=== PATIENT | male | born 1965 | race Caucasian/White ===

== ENCOUNTER 2021-02-05 09:21 | Day surgery (SDC) | payer MEDICAID ==
[~2021-02-05 09:21] MED LIST: Lactated Ringers 1,000 ML IV SCH
--- NOTE | 2021-02-05 10:58 | PCM.PREANE ---
Preanesthetic Assessment - Procedure Proposed Procedure: EGD, Colonoscopy - Anesthesia/Transfusion/Family Hx Anesthesia History: Prior Anesthesia Without Reaction Family History of Anesthesia Reaction: No Transfusion History: Prior Transfusion Without Reaction - Review of Systems General: No Symptoms Pulmonary: No Symptoms Cardiovascular: No Symptoms Gastrointestinal: No Symptoms (GERD well controlled) Neurological: No Symptoms Other: Reports: None, Liver Problems (H/O Hep B & C - nothing chronic) - Physical Assessment NPO Status Date: 02/03/21 NPO Status Time: 23:30 (Solids, >8 Hr Liq) Vital Signs: Last Vital Signs Temp 97.2 F 02/05/21 10:33 Pulse 78 02/05/21 10:33 Resp 16 02/05/21 10:33 BP 146/78 H 02/05/21 10:33 Pulse Ox 98 02/05/21 10:33 Height: 5 ft 3 in Weight: 70.307 kg ASA Class: 2 Mental Status: Alert & Oriented x3 Airway Class: Mallampati = 2 Dentition: Reports: Normal Dentition Thyro-Mental Finger Breadths: 3 Mouth Opening Finger Breadths: 3 ROM/Head Extension: Full Lungs: Clear to Auscultation, Normal Respiratory Effort Cardiovascular: Regular Rate, Regular Rhythm - Lab Values: Laboratory Last Values SARS-CoV-2 RNA ([facility]) NEGATIVE (NEGATIVE) 02/05/21 09:10 - Allergies Allergies/Adverse Reactions: Allergies Allergy/AdvReac Type Severity Reaction Status Date / Time No Known Allergies Allergy Verified 02/02/21 13:41 - Acknowledgements Anesthesia Type Planned: General Anesthesia Pt an Appropriate Candidate for the Planned Anesthesia: Yes Alternatives and Risks of Anesthesia Discussed w Pt/Guardian: Yes Pt/Guardian Understands and Agrees with Anesthesia Plan: Yes PreAnesthesia Questionnaire - Past Health History Medical/Surgical History: Denies Medical/Surgical History HEENT History: Reports: Allergic Rhinitis, Other (See Below) Other HEENT History: reading glasses Cardiovascular History: Reports: None Respiratory History: Reports: Other (See Below) Other Respiratory History: had a bout of bronchitis and was prescribed an inhaler, denies any lung problems, states gets bronchitis approx every other year Gastrointestinal History: Reports: Colon Polyp, GERD, GI Bleed, Hepatitis Other Gastrointestinal History: hx hepatitis B & C, states has been treated Genitourinary History: Reports: None Musculoskeletal History: Reports: Fracture Other Musculoskeletal History: fx arm as a child Neurological History: Reports: None Psychiatric History: Reports: Anxiety, Depression Endocrine/Metabolic History: Reports: None Hematologic History: Reports: Blood Transfusion(s) Other Hematologic History: had blood transfusion due to bleeding ulcer Immunologic History: Reports: None Oncologic (Cancer) History: Reports: Other (See Below) Other Oncologic History: skin cancer removed from leg, Dermatologic History: Reports: Eczema - Past Surgical History Head Surgeries/Procedures: Reports: None HEENT Surgical History: Reports: Adenoidectomy, Tonsillectomy Cardiovascular Surgical History: Reports: None Respiratory Surgical History: Reports: None GI Surgical History: Reports: Cholecystectomy, Colonoscopy, EGD Male Surgical History: Reports: None Endocrine Surgical History: Reports: None Neurological Surgical History: Reports: None Musculoskeletal Surgical History: Reports: None Oncologic Surgical History: Reports: None Dermatological Surgical History: Reports: None - SUBSTANCE USE Tobacco Use Status *Q: Never Tobacco User Recreational Drug Type: Reports: Methamphetamine (last use "about 3 months ago") - HOME MEDS Home Medications: Home Meds Omeprazole 20 mg PO DAILY 08/02/17 [History] Venlafaxine HCl [Venlafaxine ER] 150 mg PO DAILY 08/02/17 [History] Albuterol [Ventolin HFA] 1 - 2 puff INH ASDIRECTED PRN 02/02/21 [History] Ascorbic Acid [Vitamin C] 1,000 mg PO DAILY 02/02/21 [History] Betamethasone Dipropionate [Diprosone 0.05% Oint] 1 applic TOP ASDIRECTED PRN 02/02/21 [History] Cetirizine [ZyrTEC] 10 mg PO DAILY PRN 02/02/21 [History] Cholecalciferol (Vitamin D3) [Vitamin D3] 5,000 units PO DAILY 02/02/21 [History] Cyanocobalamin (Vitamin B12) [Vitamin B12] 500 mcg PO DAILY 02/02/21 [History] Fluticasone Propionate [Flonase Allergy Relief] 1 spray NASBOTH DAILY 02/02/21 [History] Multivitamin 1 tab PO DAILY 02/02/21 [History] Potassium Gluconate 99 mg PO DAILY 02/02/21 [History] Testosterone Cypionate 0.25 ml IM WEEKLY 02/02/21 [History] - CURRENT (IN HOUSE) MEDS Current Meds: Current Medications Lactated Ringer's (Ringers, Lactated) 1,000 mls @ 125 mls/hr IV ASDIRECTED [facility] Last Admin: 02/05/21 10:37 Dose: 125 mls/hr Documented by:
[2021-02-05] MEDS ORDERED: Propofol 200 MG/20 ML SDV ONE (11:02)
[2021-02-05] MEDS ORDERED: Lidocaine 2% 5 ML SDV ONE (11:02)
[2021-02-05] MEDS ORDERED: fentaNYL 100 MCG/2 ML SDV ONE (11:02)
--- NOTE | 2021-02-05 12:23 | PCM.POSTAN ---
POST ANESTHESIA ASSESSMENT - MENTAL STATUS Mental Status: Somnolent - VITAL SIGNS Vital Signs: Last Vital Signs Temp 97.2 F 02/05/21 10:33 Pulse 78 02/05/21 10:33 Resp 16 02/05/21 10:33 BP 146/78 H 02/05/21 10:33 Pulse Ox 98 02/05/21 10:33 - RESPIRATORY Respiratory Status: Respiratory Rate WNL, Airway Patent, O2 Saturation Stable, Supplemental Oxygen - CARDIOVASCULAR CV Status: Pulse Rate WNL, Blood Pressure Stable - GASTROINTESTINAL GI Status: No Symptoms - PAIN Free Text/Narrative:: Resting comfortably - POST OP HYDRATION Hydration Status: Adequate & Stable
--- NOTE | 2021-02-05 12:24 | PCM.OPNOTE ---
- General Post-Op/Procedure Note Date of Surgery/Procedure: 02/05/21 Operative Procedure(s): Esophagogastroduodenoscopy with gastric and esophageal biopsies. Colonoscopy. Pre Op Diagnosis: Chronic gastroesophageal reflux disease. History of gastric ulcers. History of hepatitis. Personal history of colon polyps. Family history of colon cancer in his father. Post-Op Diagnosis: Mild chronic gastritis and esophagitis. Minimal sigmoid diverticulosis. No colonic polyps or neoplasm. Anesthesia Technique: MAC (ASA II) Primary Surgeon: Issac Rudolph Learning And Development Associate: Yuriy Galeana Condition: Good Free Text/Narrative:: DICTATION [id number] CPT CODE [id number]
[2021-02-05] MEDS ORDERED: Lactated Ringers 1,000 ML IV SCH (12:30)
--- NOTE | 2021-02-05 12:31 | PCM48HPAN ---
Post Anesthesia Note - EVALUATION WITHIN 48HRS OF ANESTHETIC Vital Signs in Normal Range: Yes Patient Participated in Evaluation: Yes Respiratory Function Stable: Yes Airway Patent: Yes Cardiovascular Function Stable: Yes Hydration Status Stable: Yes Pain Control Satisfactory: Yes Nausea and Vomiting Control Satisfactory: Yes Mental Status Recovered: Yes Vital Signs: Last Vital Signs Temp 97.7 F 02/05/21 12:18 Pulse 82 02/05/21 12:29 Resp 9 L 02/05/21 12:29 BP 105/54 L 02/05/21 12:29 Pulse Ox 95 02/05/21 12:29 - COMMENTS/OBSERVATIONS Free Text/Narrative:: Pt doing well post-op. VSS. No apparent anesthetic complications. Dr. Mauricio Young
--- NOTE | 2021-02-05 12:38 | OR ---
SURGEON: Issac Rudolph M.D. DATE OF PROCEDURE: 02/05/2021 OPERATION PERFORMED: Esophagogastroduodenoscopy with biopsy. PRIMARY SURGEON: Issac Rudolph M.D. HOME HEALTH NURSE LICENSED PRACTICAL: Feather Edger: KRIS Hensley student. ANESTHESIA: MAC. ASA CLASSIFICATION: II. PREOPERATIVE DIAGNOSIS: Chronic gastroesophageal reflux disease with progressive heartburn. POSTOPERATIVE DIAGNOSES: 1. Mild chronic gastritis. 2. Esophagitis. DESCRIPTION OF PROCEDURE: The patient was taken to the endoscopy room and positioned on the endoscopy table in the left lateral decubitus position. Time-out was called for appropriate identification of the patient and procedure. Monitored anesthesia care was provided. The bite block was placed between the patient's teeth. The gastroscope was inserted through the bite block into the oropharynx and advanced without difficulty through the esophagus and stomach into the duodenum where examination was now carried out in a retrograde fashion. The duodenum showed no acute inflammatory changes or ulcerations. The gastroscope was withdrawn into the stomach that did show mild gastritis. Antral biopsies were obtained to look for the presence of Helicobacter pylori. The gastroscope was then retroflexed to visualize the proximal stomach from below. No significant hiatal hernia was noted. No polyps were encountered. The gastroscope was then straightened and slowly withdrawn. The greater and lesser curvatures were very well visualized. Again, no tumors, polyps, or ulcerations were noted. The GE junction was well defined, although he did have mild esophagitis and separate biopsies of the distal esophagus at 34 cm were obtained. It should also be noted that the antrum was biopsied to look for the presence of Helicobacter pylori. The esophagus itself demonstrated good contractility. No mid or proximal lesions were identified. The vocal cords were briefly visualized as the scope was withdrawn and noted to move symmetrically. The gastroscope was then removed with the patient having tolerated this portion of the procedure well. Following colonoscopy, he was taken to recovery room in stable condition. JEREMY / LESLEY /[id number]
--- NOTE | 2021-02-05 13:35 | OR ---
SURGEON: Issac Rudolph M.D. DATE OF PROCEDURE: 02/05/2021 OPERATION PERFORMED: Colonoscopy. PRIMARY SURGEON: Issac Rudolph M.D. BLAST FURNACE CHECKER: Custodian: KRIS Hensley student. ANESTHESIA: MAC. ASA CLASSIFICATION: II. PREOPERATIVE DIAGNOSES: 1. Personal history of colon polyps. 2. Family history of colon cancer. POSTOPERATIVE DIAGNOSIS: Minimal sigmoid diverticulosis. DESCRIPTION OF PROCEDURE: With the patient having completed upper GI endoscopy, he was maintained in the left lateral decubitus position. The colonoscope was inserted into the rectum and advanced with minimal difficulty to the cecum. The cecum was identified by internal landmarks and external pressure. The colonoscope was retroflexed to visualize the ascending colon from below, then straightened, and slowly withdrawn. The cecum, ascending colon, hepatic flexure, transverse colon, splenic flexure, and descending colon showed no tumors, polyps, diverticula, or angiodysplasia. There was no evidence of inflammatory bowel disease. A few scattered diverticula were noted in the sigmoid colon. No stricture, spasm, or bleeding was noted, and no polyps were encountered. The colonoscope was withdrawn to the rectum and retroflexed to visualize the anal orifice from above. No tumors or polyps were seen. There were no acute hemorrhoidal changes. The colonoscope was then straightened, the rectum aspirated, and the colonoscope removed. Patient tolerated the procedure well and was taken to recovery room in stable condition. JEREMY / LESLEY /[id number]
== END 2021-02-05 13:07 | disposition home or self-care (01) ==
LOC: MW.SDS 09:21
PROVIDERS: ATTEND Surgery
DX: Z12.11 Encounter for screening for malignant neoplasm of colon (principal); K21.00 Gastro-esophageal reflux disease with esophagitis, without bleeding; K29.50 Unspecified chronic gastritis without bleeding; K57.30 Diverticulosis of large intestine without perforation or abscess without bleeding; Z80.0 Family history of malignant neoplasm of digestive organs; Z86.010 Personal history of colon polyps; N39.0 Urinary tract infection, site not specified; Z98.890 Other specified postprocedural states; Z01.812 Encounter for preprocedural laboratory examination; Z20.822 Contact with and (suspected) exposure to COVID-19
CPT/HCPCS: 43239; 45378; 87635; J2704; J3010; J7120; 00813; U0002

== ENCOUNTER 2023-02-07 13:19 | Emergency (ER) | payer MEDICAID ==
[2023-02-07] MEDS ORDERED: Sodium Chloride 0.9% 2.5 ML Syringe FLUSH PRN (13:23)
[2023-02-07] MEDS ORDERED: Sodium Chloride 0.9% 10 ML Syringe FLUSH PRN (13:23)
[2023-02-07] MEDS ORDERED: Sodium Chloride 0.9% 1,000 ML IV ONE (13:34)
[2023-02-07 13:47] LABS: HEMATOCRIT 44.9 % (42.0-52.0); MEAN CORPUSCULAR HEMOGLOBIN 31.1 pg (28.0-32.0); MEAN CORPUSCULAR HGB CONC 35.6 g/dL (32.0-36.0); MEAN CORPUSCULAR VOLUME 87.4 fL (83.0-99.0); MEAN PLATELET VOLUME 9.1 fL (9.4-12.4); PLATELET COUNT,PLT 330 K/uL (150-400); RED BLOOD CELL COUNT 5.14 M/uL (4.52-5.90); WHITE BLOOD CELL COUNT,WBC 15.28 K/uL (3.9-11.3)
[2023-02-07 14:25] LABS: A/G RATIO 1.1 (0.9-1.6); ALBUMIN 4.1 g/dL (3.4-5.0); BASOPHILS ABSOLUTE MAN 0.15 K/uL (0.00-0.20); BASOPHILS PERCENT MAN 1 % (0-1); BILIRUBIN TOTAL 1.4 mg/dL (0.2-1.0); CARBON DIOXIDE,CO2 26.6 mmol/L (21.0-32.0); CREATININE 1.1 mg/dL (0.8-1.3); EOSINOPHILS ABSOLUTE MAN 0.15 K/uL (0.00-0.45); EOSINOPHILS PERCENT MAN 1 % (0-6); EST CRCL DRUG DOSING (CG) 58.19 mL/min; LYMPHOCYTES ABSOLUTE MAN 3.21 K/uL (1.00-4.80); LYMPHOCYTES PERCENT MAN 21 % (24-44); MONOCYTES ABSOLUTE MAN 1.99 K/uL (0.00-0.80); MONOCYTES PERCENT MAN 13 % (0-8); POTASSIUM,K 3.6 mmol/L (3.5-5.1); PROTEIN TOTAL,TP 7.7 g/dL (6.4-8.2); SEG NEUTROPHILS ABSOLUTE MAN 9.78 K/uL (1.80-7.70); SEG NEUTROPHILS PERCENT MAN 64 % (41-71)
== END 2023-02-07 15:38 | disposition home or self-care (01) ==
LOC: MW.ED 13:19
DX: R07.1 Chest pain on breathing (principal); R07.89 Other chest pain; F15.10 Other stimulant abuse, uncomplicated; K21.9 Gastro-esophageal reflux disease without esophagitis; Z79.899 Other long term (current) drug therapy
CPT/HCPCS: 36415; 71045; 80053; 84484; 85025; 93005; 96360; 99285; J3490; J7030; 93010; 99283

== ENCOUNTER 2023-02-07 20:03 | Emergency (ER) | payer MEDICAID | END 2023-02-07 22:00 | disposition home or self-care (01) | LOC: MW.ED 20:03 | DX: F19.90 Other psychoactive substance use, unspecified, uncomplicated (principal); I10 Essential (primary) hypertension; K21.9 Gastro-esophageal reflux disease without esophagitis; Z79.899 Other long term (current) drug therapy | CPT/HCPCS: 99283; 99284 ==